=== PATIENT | female | born 2000 | race Caucasian/White ===

== ENCOUNTER 2025-05-30 23:25 | Emergency (ER) | payer BC ==
[~2025-05-30] VITALS: Ht 162.6 cm; Wt 88.8 kg
[2025-05-31] VITALS: O2SAT 100
[2025-05-31 00:31] LABS: BASOPHILS % 0.4 % (0.0-2.0); EOSINOPHILS % 0.8 % (0.0-5.0); HEMATOCRIT. 39.1 % (36.0-48.0); HEMOGLOBIN. 13.0 g/dL (12.0-16.0); LYMPHOCYTES % 11.8 % (20.0-50.0); MEAN PLATELET VOLUME 7.7 fl (7.4-10.4); MONOCYTES % 6.0 % (2.0-8.0); NEUTROPHILS % 81.0 % (40.0-76.0); PLATELET 275 x1000/uL (130-400); RED BLOOD CELL COUNT 4.38 mill/uL (4.2-5.4); RED CELL DISTRIBUTION WIDTH 12.5 % (11.6-14.6)
[2025-05-31 00:39] LABS: CREATININE 0.8 mg/dL (0.6-1.0); UREA NITROGEN BLOOD 15 mg/dL (9-23)
[2025-05-31] MEDS: ONDANSETRON 4MG ODT PO ONE (02:45)
[2025-05-31] MEDS: DOCUSATE SODIUM 250MG CAPSULE PO ONE (02:45)
[2025-05-31] MEDS: KETOROLAC 15MG/ML VIAL IM NR (02:51)
[2025-05-31 03:31] LABS: HCG SCREEN NEGATIVE
[2025-05-31 03:34] LABS: ASPARTATE AMINOTRANSFERASE 19 IU/L (<34)
[2025-05-31 03:35] LABS: BILIRUBIN DIRECT 0.2 mg/dL (<=3.0); BILIRUBIN TOTAL 0.5 mg/dL (0.1-1.0); PROTEIN TOTAL 7.3 g/dL (6.0-8.3)
[2025-05-31 04:11] LABS: CLARITY URINE CLEAR (CLEAR); COLOR URINE YELLOW (YELLOW); GLUCOSE URINE NEGATIVE (NEGATIVE); KETONES URINE 1+ (NEGATIVE); LEUKOCYTE ESTERASE URINE NEGATIVE (NEGATIVE); NITRITE URINE NEGATIVE (NEGATIVE); OCCULT BLOOD URINE NEGATIVE (NEGATIVE); PH URINE 6.5 (4.5-8.0); PROTEIN URINE NEGATIVE (NEGATIVE); SPECIFIC GRAVITY URINE 1.017 (1.005-1.030); UROBILINOGEN URINE 0.2 E.U./dL (0.2-1.0)
[2025-05-31] MEDS: MINERAL OIL ENEMA 133ML PR ONE (04:17)
[2025-05-31] MEDS ORDERED: SENN-215 MT (04:52)
[2025-05-31] MEDS ORDERED: MAGN296S70 MT (04:52)
[2025-05-31 05:08] VITALS: BP 124/73; PULSE 84; RESP 14; TEMP 36.8; O2SAT 100
== END 2025-05-31 05:10 | disposition home or self-care (01) ==
LOC: ER 23:38
DX: K59.00 Constipation, unspecified (principal)
CPT/HCPCS: 99285; 81025; 36415 ×2; 74176; 80076; 80048; 81003; 84703; 83690; 85025; 96372; J1885; Q0162